=== PATIENT | male | born 1960 | race Caucasian/White ===

== ENCOUNTER 2016-09-07 13:00 | Outpatient (CLI) ==
--- NOTE | 2016-09-07 13:40 | DI ---
EXAM: Five views of the lumbar spine. History: Lower back pain. Findings: Nonspecific pelvic calcifications are probably phleboliths. No acute fracture. Minimal a nterolisthesis of L4 on L5. Six lumbar type vertebral bodies. Partial sacralization of L6 on the ri ght. Moderate disc space narrowing at L5-L6. Mild to moderate disc space narrowing seen elsewhere. Severe facet hypertrophy at L5-L6 and L6 - S1. Impression: No acute fracture. Degenerative changes.
== END 2016-09-07 13:01 | disposition home or self-care (01) ==
LOC: RAD 13:00
PROVIDERS: ATTEND Pain Medicine Interventional Pain Medicine
DX: M47.812 Spondylosis without myelopathy or radiculopathy, cervical region (principal); M47.816 Spondylosis without myelopathy or radiculopathy, lumbar region; M47.817 Spondylosis without myelopathy or radiculopathy, lumbosacral region; M50.30 Other cervical disc degeneration, unspecified cervical region; M51.36 Other intervertebral disc degeneration, lumbar region; M51.37 Other intervertebral disc degeneration, lumbosacral region

== ENCOUNTER 2017-07-04 11:08 | Outpatient (CLI) ==
[2017-07-04 11:58] LABS: ALBUMIN 3.4 g/dL (3.4-5.0); ALBUMIN/GLOBULIN RATIO 0.97; ANION GAP 12.5; BILIRUBIN,DIRECT 0.1 mg/dL (0.00-0.30); BILIRUBIN,TOTAL 0.3 mg/dL (0.00-1.20); BUN/CREATININE RATIO 20.19; CALCIUM 9.4 mg/dL (8.2-10.2); CREATININE 1.04 mg/dL (0.60-1.10); PHOSPHORUS 3.7 mg/dL (2.5-4.9); POTASSIUM 4.5 mmol/L (3.5-5.1); TOTAL PROTEIN 6.9 g/dL (6.4-8.2)
== END 2017-07-04 11:09 | disposition home or self-care (01) ==
LOC: LAB 11:08
PROVIDERS: ATTEND Pain Medicine Interventional Pain Medicine
DX: Z51.81 Encounter for therapeutic drug level monitoring (principal); Z79.891 Long term (current) use of opiate analgesic; F19.20 Other psychoactive substance dependence, uncomplicated
CPT/HCPCS: 36415; 80053; 82248; 84100

== ENCOUNTER 2018-12-01 08:25 | Outpatient (CLI) ==
--- NOTE | 2018-12-03 05:24 | MRI ---
EXAM: Lumbar spine MRI without contrast. HISTORY: Degenerative disc disease. COMPARISON: Lumbar spine radiographs 09/07/2016. TECHNIQUE: Multiplanar, multisequence MR images were acquired of the lumbar spine without contrast. The study is degraded by patient motion and decreased signal noise which produces decreased spatial and contrast resolution. FINDINGS: Transitional spinal anatomy is present at the lumbosacral junction. For the purposes of t his dictation, the first [id number] vertebra is numbered T12. Conus medullaris ends at T12-L1 a nd has normal morphology and signal intensity. Canal diameter is developmentally narrow. S1 is a tr ansitional vertebra with left lumbarization and a hypertrophic pseudoarticulation between the right f irst and second sacral segments. The lumbar vertebra are normal in heightand intrinsic bone marrow s ignal. There is minor mid lumbar levoscoliosis and mild accentuation of the usual lumbar lordosis. There is a trace anterolisthesis of L4 on L5 and 1.5 mm degenerative anterolisthesis of L5 on S1. Ve ntral spondylosis is present. There is desiccation of the lumbar intervertebral discs. The partially visualized liver and kidneys are unremarkable. A few descending and sigmoid colon dive rticula are present without diverticulitis. L1-2: The intervertebral disc is normal. There is no central canal stenosis or foraminal stenosis. L2-3: There is a minor spondylotic disc bulge that may be physiologic which minimally narrows the in ferior neural foramina and there is minor right and mild left facet arthropathy and ligamentum flavum hypertrophy. There is no central canal stenosis. L3-4: There is a mild disc bulge and mild to moderate right and moderate left hypertrophic facet art hropathy and ligamentum flavum hypertrophy. This narrows the posterolateral thecal sac bilaterally w ithout central canal stenosis. In this patient with a developmentally narrow canal, there is mild sp inal stenosis and minor right and mild left neural foraminal stenosis. AP diameter of the thecal sac is 9 mm. L4-5: There is a mild disc bulge that encroaches on the L4 nerves exiting the neural foramina and mo derate bilateral hypertrophic facet arthropathy and ligamentum flavum hypertrophy. There is irregula r concavity of the L4 inferior endplate with a small Schmorl's node with low T1, bright STIR signal i n the Schmorl's node and along the margins and focal discontinuity in the inferior plate with minor a djacent bright STIR signal in the disc which may represent a recent Schmorl's node formation. There is triangulation of the thecal sac and mild bilateral foraminal stenosis. L5-S1: There is a mild diffuse spondylotic disc bulge which may encroach on the L5 nerves exiting th e neural foramina and moderate bilateral hypertrophic facet arthropathy and ligamentum flavum hypertr ophy. There is mild bilateral foraminal stenosis. S1-2: There is a rudimentary intervertebral disc with a minor posterior disc osteophyte complex and small left far lateral endplate osteophytes that may encroach on the left S1 nerve exiting neural foramen. Mild left hypertrophic facet arthropathy i s present. 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 There is no central canal stenosis. IMPRESSION: 1. Mild lumbar degenerative spondylosis and mild to moderate lumbar hypertrophic facet arthropathy. 2. Mild spinal stenosis L3-4. 3. 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
== END 2018-12-01 08:26 | disposition home or self-care (01) ==
LOC: RAD 08:25
PROVIDERS: ATTEND Pain Medicine Interventional Pain Medicine
DX: M51.36 Other intervertebral disc degeneration, lumbar region (principal); M51.37 Other intervertebral disc degeneration, lumbosacral region; M47.816 Spondylosis without myelopathy or radiculopathy, lumbar region; M47.817 Spondylosis without myelopathy or radiculopathy, lumbosacral region